=== PATIENT | female | born 1960 | race Caucasian/White ===

== ENCOUNTER 2022-10-21 18:09 | Emergency (ER) | payer OTHER ==
[2022-10-21 18:33] VITALS: BP 149/71; PULSE 78; RESP 18; TEMP 97.8; BMI 23.3
== END 2022-10-21 21:23 | disposition home or self-care (01) ==
LOC: FER 18:09
DX: S00.03XA Contusion of scalp, initial encounter (principal); S40.011A Contusion of right shoulder, initial encounter; R51.9 Headache, unspecified; W50.0XXA Accidental hit or strike by another person, initial encounter; Y93.I9 Activity, other involving external motion
CPT/HCPCS: 70450-TC; 73030-TC-RT-FY; 99284-25